=== PATIENT | male | born 1990 | race Caucasian/White ===

== ENCOUNTER 2017-01-23 03:48 | Emergency (ER) | payer MEDICAID ==
[~2017-01-23] VITALS: Ht 172.7 cm; Wt 73.9 kg
[2017-01-23 04:00] VITALS: BP 109/56; PULSE 111; RESP 18; TEMP 97.8; O2SAT 98
--- NOTE | 2017-01-23 04:00 | NUR ---
Placed in room 08 . [address] on court monitor, blood pressure machine and pulse oximeter. To gown for exam. Side rails up. Report given to BEATRIS Knutson.
--- NOTE | 2017-01-23 04:07 | NUR ---
Pt presents to ED with c/o hives in the back of the head, small bumps discovered upon palpation of posterior skull. Pt stated he visited PCP yesterday and was given an " antibiotic " for hives. Pt c/o feeling " not right" in gential area, no specific pain complain noted. A&Ox4, denies SOB or chestpain, denies N/V/D. Pt stated he did not use heroin for the past few days.
--- NOTE | 2017-01-23 04:33 | NUR ---
MD gibbs at bedside examining pt
[2017-01-23] MEDS ORDERED: LORazepam 2 MG/ML VIAL (FOR ER USE) IM ONE (04:45)
--- NOTE | 2017-01-23 05:06 | NUR ---
Patient given written and verbal discharge instructions and verbalizes understanding. ER MD Chand discussed with patient the results and treatment provided. Patient in stable condition. ID arm band removed. No rx given. Patient educated on pain management and to follow up with PMD. Pain Scale 0/10. Opportunity for questions provided and answered.
[2017-01-23 05:07] VITALS: BP 102/56; PULSE 88; RESP 18; TEMP 97.8; O2SAT 98
== END 2017-01-23 05:06 | disposition home or self-care (01) ==
LOC: SED 03:48
DX: F41.9 Anxiety disorder, unspecified (principal); F11.10 Opioid abuse, uncomplicated
CPT/HCPCS: 96372; 99284; J2060; 99283